=== PATIENT | male | born 1990 | race American Indian/Alaskan Native ===

== ENCOUNTER 2016-08-07 03:08 | Emergency (ER) | payer MEDICAID ==
[2016-08-07 03:50] VITALS: BMI 28.3
[2016-08-07 03:55] VITALS: BP 115/71; PULSE 70; RESP 16; TEMP 97.8; O2SAT 100
--- NOTE | 2016-08-07 04:22 | ED PDOC ---
Arrival/HPI - General Chief Complaint: Eye Problem Time Seen by Provider: 08/07/16 03:38 Historian: Patient - History of Present Illness Narrative History of Present Illness (Text): 08/07/16 04:18 Gatito Interiano is a 26 year old male, with no significant past medical history, who presents to the emergency department complaining of right eye irritation. Patient sates he was rubbing his eye earlier today and began experiencing right eye irritation. Patient notes a foreign body sensation to his right upper eyelid. Patient denies any contact lens use, visual disturbances, headache, dizziness, eye discharge, or any other complaints. Time/Duration: 1-3 hours (2 hours) Symptom Onset: Gradual Symptom Course: Unchanged Activities at Onset: Rest, Light Context: Home Past Medical History - Provider Review Nursing Documentation Reviewed: Yes - Infectious Disease Hx of Infectious Diseases: None - Tetanus Immunization Tetanus Immunization: Unknown - Past Medical History Past Medical History: No Previous - Musculoskeletal/Rheumatological Hx Arthritis: Yes (neck, back) - Gastrointestinal Hx Gastroesophageal Reflux: Yes - Psychiatric Hx Psychophysiologic Disorder: No Hx Substance Use: Yes (once in awhile) - Past Surgical History Past Surgical History: No Previous - Anesthesia Hx Anesthesia: No - Suicidal Assessment Feels Threatened In Home Enviroment: No Family/Social History - Physician Review Nursing Documentation Reviewed: Yes Family/Social History: No Known Family HX Smoking Status: Never Smoked Hx Alcohol Use: Yes Frequency of alcohol use: Socially Hx Substance Use: Yes (once in awhile) Substance used: marijuana Hx Substance Use Treatment: No Allergies/Home Meds Allergies/Adverse Reactions: Allergies No Known Allergies Allergy (Verified 04/20/16 12:41) Home Medications: Home Meds Medication Instructions Recorded Confirmed Omeprazole [Omeprazole] 20 mg PO DAILY 04/20/16 08/07/16 Review of Systems - Physician Review All systems were reviewed & negative as marked: Yes - Review of Systems Constitutional: Normal. absent: Fevers Eyes: Other (+right eye irritation) ENT: Normal Respiratory: Normal Cardiovascular: Normal Gastrointestinal: Normal Genitourinary Male: Normal Musculoskeletal: Normal. absent: Back Pain, Neck Pain Skin: Normal Neurological: Normal. absent: Headache, Dizziness Endocrine: Normal Hemo/Lymphatic: Normal Psychiatric: Normal Physical Exam Vital Signs Reviewed: Yes Vital Signs Temp Pulse Resp BP Pulse Ox 08/07/16 03:54 97.8 F 70 16 115/71 100 Temperature: Afebrile Blood Pressure: Normal Pulse: Regular Respiratory Rate: Normal Appearance: Positive for: Well-Appearing, Non-Toxic, Comfortable Pain Distress: None Mental Status: Positive for: Alert and Oriented X 3 - Systems Exam Head: Present: Atraumatic, Normocephalic Pupils: Present: PERRL. No: Other (No evidence of corneal abrasion, no foreign body noted) Extroacular Muscles: Present: EOMI Conjunctiva: Present: Other (Minimal right-sided conjunctival erythema) Mouth: Present: Moist Mucous Membranes Neurological: Present: GCS=15, CN II-XII Intact, Speech Normal Skin: Present: Warm, Dry, Normal Color. No: Rashes Psychiatric: Present: Alert, Oriented x 3, Normal Insight, Normal Concentration Medical Decision Making ED Course and Treatment: 08/07/16 04:18 Impression: 26 Year old male Complaining of right eye irritation for 2 hours. Plan: -- Tobrex -- Reassess and disposition Progress Notes: Right eyelid was everted, no foreign body visualized. Tetraine HCl and fluorescein dye applied, there was no fluorescein uptake, no evidence of corneal abrasion. Right eye flushed with saline. 08/07/16 04:46 On re-evaluation, the patient feels better and is in no acute distress. I have discussed the results and plan with the patient, who expresses understanding. Patient in agreement with plan to discharged home. Patient is stable for discharge. Patient was instructed to follow up with physician/clinic in 1-2 days or return if symptoms worsen or new concerning symptoms arise. - Medication Orders Current Medication Orders: Discontinued Medications Tobramycin Sulfate (Tobrex 0.3% Ophth Oint) 0 appl OD ONCE ONE Stop: 08/07/16 04:37 Last Admin: 08/07/16 04:49 Dose: 0.5 inch - Scribe Statement The provider has reviewed the documentation as recorded by the Stacy Echevarria Provider Attestation: All medical record entries made by the Jalilibyared were at my direction and personally dictated by me. I have reviewed the chart and agree that the record accurately reflects my personal performance of the history, physical exam, medical decision making, and the department course for this patient. I have also personally directed, reviewed, and agree with the discharge instructions and disposition. Disposition/Present on Arrival - Present on Arrival Any Indicators Present on Arrival: No History of DVT/PE: No History of Uncontrolled Diabetes: No Urinary Catheter: No History of Decub. Ulcer: No History Surgical Site Infection Following: None - Disposition Have Diagnosis and Disposition been Completed?: Yes Diagnosis: Corneal irritation of right eye, Conjunctivitis Disposition: HOME/ ROUTINE Disposition Time: 04:48 Patient Plan: Discharge Condition: GOOD Additional Instructions: Place eye antibiotic ointment to affected eye three times daily/follow up with the eye doctor tommorrow Prescriptions: Tobramycin 0.3% [Tobrex 0.3% Ophth Soln] 2 drop OD TID #1 bottle Referrals: Andrea Cohen [Staff Provider] - Follow up with primary
[2016-08-07] MEDS ORDERED: Tobramycin 0.3% OPH OINT OD ONE (04:36)
== END 2016-08-07 05:17 | disposition home or self-care (01) ==
LOC: ED 03:08
DX: H10.9 Unspecified conjunctivitis (principal); H57.8 Other specified disorders of eye and adnexa

== ENCOUNTER 2016-11-06 00:57 | Emergency (ER) | payer MEDICAID ==
[2016-11-06 00:58] VITALS: BMI 28.3
[2016-11-06 01:10] VITALS: BP 146/81; PULSE 86; RESP 17; TEMP 98; O2SAT 100
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
--- NOTE | 2016-11-06 09:21 | RAD ---
PROCEDURE: Right Wrist Radiographs. HISTORY: pain COMPARISON: None. FINDINGS: BONES: Normal. No fracture. JOINTS: Normal. No dislocation. SOFT TISSUES: Normal. OTHER FINDINGS: None. IMPRESSION: Normal right wrist radiographs.
--- NOTE | 2016-11-06 09:22 | RAD ---
PROCEDURE: Radiographs of the Right Shoulder HISTORY: pain COMPARISON: No prior. FINDINGS: BONES: Normal. No fracture. JOINTS: Normal. Glenohumeral and acromioclavicular joints preserved. No osteoarthritis. SOFT TISSUES: Normal. OTHER FINDINGS: None. IMPRESSION: Normal radiographs of the right shoulder.
== END 2016-11-06 02:23 | disposition home or self-care (01) ==
LOC: ED 00:57
DX: M25.511 Pain in right shoulder (principal); M25.531 Pain in right wrist

== ENCOUNTER 2016-11-17 10:32 | Emergency (ER) | payer MEDICAID ==
[2016-11-17 10:32] VITALS: BMI 28.3
[2016-11-17 10:37] VITALS: TEMP 98.6
--- NOTE | 2016-11-17 11:30 | ED PDOC ---
Arrival/HPI - History of Present Illness Time/Duration: < week Symptom Onset: Gradual Symptom Course: Unchanged Quality: Stabbing Severity Level: 7 Activities at Onset: Rest Context: Sitting <Buddy Baeza - Last Filed: 11/17/16 11:42> <Oh Thomas - Last Filed: 11/17/16 13:16> - General Chief Complaint: Chest Pain Time Seen by Provider: 11/17/16 11:08 - History of Present Illness Narrative History of Present Illness (Text): 11/17/16 11:20 This is a 26 yr old male with a significant past medical history of GERD who comes to the [facility] complaining of chest pain for approximately 3 days. The patient describes the pain as sharp in nature and rates it a 6/10 in severity. He describes the pain as pleuritic in nature and worse with bending forward. He associates the pain with with constipation and gas. The patient took Pantoprozole which normally stops the symptoms but they persisted and he decided to come in to the E.D. . The patient reports stomach pain. The patient denies, nausea, vomiting, lightheadedness, dizziness, shortness of breath, changes in vision, or syncopal episodes. Per patient he has had an U/S done and is scheduled for a scope by the Nursing Education Specialist this month. All studies thus far have come back negative per patient. 11/17/16 11:42 (Buddy Baeza) Past Medical History - Provider Review Nursing Documentation Reviewed: Yes - Infectious Disease Hx of Infectious Diseases: None - Tetanus Immunization Tetanus Immunization: Unknown - Past Medical History Past Medical History: No Previous - Musculoskeletal/Rheumatological Hx Arthritis: Yes (neck, back) - Gastrointestinal Hx Gastroesophageal Reflux: Yes - Psychiatric Hx Psychophysiologic Disorder: No Hx Substance Use: Yes (once in awhile) - Past Surgical History Past Surgical History: No Previous - Anesthesia Hx Anesthesia: No - Suicidal Assessment Feels Threatened In Home Enviroment: No <Buddy Baeza - Last Filed: 11/17/16 11:42> Family/Social History - Physician Review Nursing Documentation Reviewed: Yes Family/Social History: Hypertension Smoking Status: Never Smoked Hx Alcohol Use: Yes Hx Substance Use: Yes (once in awhile) Substance used: marijuana Hx Substance Use Treatment: No <Buddy Baeza - Last Filed: 11/17/16 11:42> Allergies/Home Meds <Jones Baezan - Last Filed: 11/17/16 11:42> <Oh Thomas - Last Filed: 11/17/16 13:16> Allergies/Adverse Reactions: Allergies corn Allergy (Verified 11/17/16 10:35) WHEEZING Home Medications: Home Meds Medication Instructions Recorded Confirmed Pantoprazole [Protonix] 40 mg PO DAILY 11/17/16 11/17/16 Review of Systems - Physician Review All systems were reviewed & negative as marked: Yes - Review of Systems Constitutional: Normal. absent: Weight Change, Fevers Eyes: Normal. absent: Vision Changes, Eye Pain ENT: Normal. absent: Rhinorrhea, Epistaxis, Sinus Congestion Respiratory: Normal. absent: SOB, Sputum, Wheezing Cardiovascular: Normal, Chest Pain. absent: Palpitations, Syncope Gastrointestinal: Normal, Abdominal Pain, Constipation. absent: Nausea, Vomiting, Hematochezia Genitourinary Male: Normal. absent: Dysuria, Hematuria Musculoskeletal: Normal. absent: Back Pain, Joint Swelling Skin: Normal. absent: Rash, Skin Lesions <Jones Baezan - Last Filed: 11/17/16 11:42> Physical Exam Vital Signs Reviewed: Yes Temperature: Afebrile Blood Pressure: Normal Pulse: Regular Respiratory Rate: Normal Appearance: Positive for: Well-Appearing, Non-Toxic, Comfortable Pain Distress: None Mental Status: Positive for: Alert and Oriented X 3 - Systems Exam Head: Present: Atraumatic, Normocephalic Pupils: Present: PERRL Extroacular Muscles: Present: EOMI. No: Gaze Palsy Conjunctiva: Present: Normal. No: Injected Mouth: Present: Moist Mucous Membranes Neck: Present: Normal Range of Motion. No: JVD, Lymphadenopathy Respiratory/Chest: Present: Clear to Auscultation, Good Air Exchange. No: Respiratory Distress, Accessory Muscle Use Cardiovascular: Present: Regular Rate and Rhythm, Normal S1, S2. No: Murmurs, Tachycardic, Bradycardic Abdomen: Present: Tenderness, Normal Bowel Sounds. No: Distention, Peritoneal Signs, Rebound, Guarding Upper Extremity: Present: Normal Inspection. No: Cyanosis, Edema, Swelling Lower Extremity: Present: Normal Inspection. No: Edema, Cyanosis Neurological: Present: CN II-XII Intact, Speech Normal Skin: Present: Dry, Normal Color. No: Warm, Rashes Psychiatric: Present: Alert, Oriented x 3, Normal Insight, Normal Concentration <AryanBuddy - Last Filed: 11/17/16 11:42> Medical Decision Making <Buddy Baeza - Last Filed: 11/17/16 11:42> - RAD Interpretation Coil Winder Strap: ED Physician <Oh Thomas - Last Filed: 11/17/16 13:16> ED Course and Treatment: 11/17/16 11:34 Patient came in with chest pain for 3 days. Labs were ordered for him including : EKG, CXR, Urine drug screen, and d-dimer. Patient will be revaluated once lab work and imaging returns. 11/17/16 11:36 11/17/16 11:37 (Buddy Baeza) A 26 year old male with chest pain. In agreement with resident note, which includes further HPI details. Patient was seen and evaluated with resident, came up with plan and treatment together. 11/17/16 12:44 Seen and examined with the resident. Our history and physical exam reveals a young man with left-sided pleuritic chest pain for the last several days. Worse with deep breathing. No dyspnea. No sputum. No fever or chills. No injury or trauma. Markedly improved with Toradol. He will be discharged home to follow up with PMD for outpatient endoscopy as already scheduled. 11/17/16 13:16 EKG shows normal sinus rhythm rate approximately 75 with nonspecific T-wave changes (Oh Thomas) - Lab Interpretations Lab Results: 11/17/16 11:20 11/17/16 11:20 Lab Results 11/17/16 12:00: Urine Opiates Screen Negative, Urine Methadone Screen Negative, Ur Barbiturates Screen Negative, Ur Phencyclidine Scrn Negative, Ur Amphetamines Screen Negative, U Benzodiazepines Scrn Negative, U Oth Cocaine Metabols Negative, U Cannabinoids Screen Positive H 11/17/16 11:20: Sodium 140, Potassium 4.0, Chloride 106, Carbon Dioxide 23, Anion Gap 15, BUN 14, Creatinine 0.9, Est GFR ( Amer) > 60, Est GFR (Non- Af Amer) > 60, Random Glucose 112 H, Calcium 9.2, Total Bilirubin 0.8, AST 24, ALT 26, Alkaline Phosphatase 92, Lactate Dehydrogenase 403, Total Creatine Kinase 161, Troponin I < 0.01, Total Protein 7.5, Albumin 4.0, Globulin 3.5, Albumin/Globulin Ratio 1.1, Lipase 83 11/17/16 11:20: D-Dimer, Quantitative 0.19 11/17/16 11:20: WBC 5.9, RBC 4.37, Hgb 13.9 L, Hct 39.7 L, MCV 90.8, MCH 31.8, MCHC 35.0, RDW 12.4, Plt Count 236, MPV 9.4, Gran % 60.1, Lymph % (Auto) 31.8, [place] % (Auto) 6.8 H, Eos % (Auto) 1.0 L, Baso % (Auto) 0.3, Gran # 3.55, Lymph # 1.9, [place] # 0.4, Eos # 0.1, Baso # 0.02 - RAD Interpretation Radiology Orders: 11/17/16 11:16 CHEST PORTABLE [RAD] Stat Chest 1 view shows no infiltrate effusion cardiomegaly or pneumothorax (Oh Thomas) - Medication Orders Current Medication Orders: Discontinued Medications Ketorolac Tromethamine (Toradol) 15 mg IVP STAT STA Stop: 11/17/16 11:16 Last Admin: 11/17/16 11:36 Dose: 15 mg <Buddy Baeza - Last Filed: 11/17/16 11:42> - PA / LINK ASSEMBLER / Resident Statement / has reviewed & agrees with the documentation as recorded. / has examined the patient and agrees with the treatment plan. - Scribe Statement The provider has reviewed the documentation as recorded by the Scribe <Oh Thomas - Last Filed: 11/17/16 13:16> - Scribe Statement Gail Yanes Provider Scribe Attestation: All medical record entries made by the Scribe were at my direction and personally dictated by me. I have reviewed the chart and agree that the record accurately reflects my personal performance of the history, physical exam, medical decision making, and the department course for this patient. I have also personally directed, reviewed, and agree with the discharge instructions and disposition. (Oh Thomas) Disposition/Present on Arrival - Present on Arrival History of DVT/PE: No History of Uncontrolled Diabetes: No Urinary Catheter: No History of Decub. Ulcer: No History Surgical Site Infection Following: None <Buddy Baeza - Last Filed: 11/17/16 11:42> - Present on Arrival Any Indicators Present on Arrival: No History of DVT/PE: No History of Uncontrolled Diabetes: No Urinary Catheter: No History of Decub. Ulcer: No - Disposition Have Diagnosis and Disposition been Completed?: Yes Disposition Time: 12:45 Patient Plan: Discharge <Oh Thomas - Last Filed: 11/17/16 13:16> - Disposition Diagnosis: Pleuritic chest pain Disposition: HOME/ ROUTINE Patient Problems: Current Active Problems Problem Status Onset Pleuritic chest pain Acute Condition: IMPROVED Discharge Instructions (ExitCare): Chest Pain (ED), Pleurisy (ED) Prescriptions: Naproxen [Naprosyn] 500 mg PO BID #14 tab Pantoprazole Sodium [Protonix] 40 mg PO DAILY #20 ect Referrals: Hilario Cotton, [Primary Care Provider] - Follow up with primary Forms: [employer] (Guatemalan), WORK NOTE
[2016-11-17 11:39] LABS: BASO # 0.02 K/mm3 (0.0-2.0); BASO % 0.3 % (0.0-3.0); EOS # 0.1 (0.0-0.7); GRAN # 3.55 (1.4-6.5); GRAN % 60.1 % (50.0-68.0); HEMOGLOBIN 13.9 gm/dL (14.0-18.0); LYMPH # 1.9 (1.2-3.4); LYMPH % 31.8 % (22.0-35.0); MEAN CELL VOLUME 90.8 fL (80.0-105.0); MEAN CORPUSCULAR HEMOGLOBIN 31.8 pg (25.0-35.0); MEAN PLATELET VOLUME 9.4 fl (7.0-11.0); MONO # 0.4 (0.1-0.6); MONO % 6.8 % (1.0-6.0); PLATELET COUNT 236 10^3/uL (120.0-450.0); RBC 4.37 10^6/uL (3.5-6.1); RED CELL DISTRIBUTION WIDTH 12.4 % (11.5-14.5); WHITE BLOOD COUNT 5.9 10^3/ul (4.5-11.0)
[2016-11-17 11:52] LABS: ALB/GLOB RATIO 1.1 (1.1-1.8); ALT/SGPT 26 U/L (7-56); AST/SGOT 24 U/L (15-59); BLOOD UREA NITROGEN 14 mg/dL (7-21); CALCIUM 9.2 mg/dL (8.4-10.5); GFR AFRICAN-AMERICAN > 60; GFR NON-AFRICAN AMERICAN > 60; LIPASE 83 U/L (23-300)
[2016-11-17 12:03] LABS: TROPONIN I < 0.01 ng/mL
[2016-11-17 12:25] LABS: BARBITURATES, UR NEGATIVE (NEGATIVE); BENZODIAZEPINES, UR NEGATIVE (NEGATIVE); OPIATES, UR NEGATIVE (NEGATIVE); PHENCYCLIDINE, UR NEGATIVE (NEGATIVE)
--- NOTE | 2016-11-17 12:25 | RAD ---
HISTORY: r/o P.E. COMPARISON: No prior. FINDINGS: LUNGS: No active pulmonary disease. PLEURA: No significant pleural effusion identified, no pneumothorax apparent. CARDIOVASCULAR: Normal. OSSEOUS STRUCTURES: No significant abnormalities. VISUALIZED UPPER ABDOMEN: Normal. OTHER FINDINGS: None. IMPRESSION: No active disease.
[2016-11-17 12:58] VITALS: PULSE 67; RESP 17; O2SAT 97
[2016-11-17 13:02] VITALS: BP 136/84
--- NOTE | 2016-11-19 09:21 | CARD ---
APPROVED REPORT EKG Measurement Heart [id number] <Conclusion> Normal sinus rhythm Nonspecific T wave abnormality LVH by voltage
== END 2016-11-17 13:01 | disposition home or self-care (01) ==
LOC: ED 10:32
DX: R07.81 Pleurodynia (principal)
CPT/HCPCS: 71010; 80053; 80324; 80345; 80346; 80349; 80353; 80358; 80361; 82550; 83615; 83690; 83992; 84484; 85025; 85378; 93005; 96374; 99284; J1885

== ENCOUNTER 2017-04-02 02:01 | Emergency (ER) | payer MEDICAID ==
[2017-04-02 02:01] VITALS: BMI 28.3
[2017-04-02] MEDS ORDERED: Sodium Chloride 0.9% 1,000 ML IV STA (02:30)
--- NOTE | 2017-04-02 02:41 | ED PDOC ---
Arrival/HPI - General Chief Complaint: Abdominal Pain Time Seen by Provider: 04/02/17 02:15 Historian: Patient - History of Present Illness Narrative History of Present Illness (Text): 04/02/17 02:40 A 26 year old male, whose past medical history includes GERD, presents to the emergency department complaining of stomach discomfort, burning sensation to stomach with some reflux symptoms. Reports nausea and diarrhea. Patient states symptoms began after eating yesterday. Patient notes intermittent non- productive cough but denies any fever, chills or any other complaints at this time. Time/Duration: Other (yesterday) Symptom Onset: Sudden Symptom Course: Unchanged Activities at Onset: Rest Context: Home Past Medical History - Provider Review Nursing Documentation Reviewed: Yes - Infectious Disease Hx of Infectious Diseases: None - Tetanus Immunization Tetanus Immunization: Unknown - Past Medical History Past Medical History: No Previous - Musculoskeletal/Rheumatological Hx Arthritis: Yes (neck, back) - Gastrointestinal Hx Gastroesophageal Reflux: Yes - Psychiatric Hx Psychophysiologic Disorder: No Hx Substance Use: Yes (once in awhile) - Past Surgical History Past Surgical History: No Previous - Anesthesia Hx Anesthesia: No - Suicidal Assessment Feels Threatened In Home Enviroment: No Family/Social History - Physician Review Nursing Documentation Reviewed: Yes Family/Social History: No Known Family HX Smoking Status: Current Some Days Smoker Hx Alcohol Use: Yes Hx Substance Use: Yes (once in awhile) Substance used: marijuana Hx Substance Use Treatment: No Allergies/Home Meds Allergies/Adverse Reactions: Allergies corn Allergy (Verified 04/02/17 02:20) WHEEZING Review of Systems - Physician Review All systems were reviewed & negative as marked: Yes - Review of Systems Constitutional: absent: Fevers, Other (chills) Respiratory: Cough (non-productive) Gastrointestinal: Diarrhea, Nausea, Other (stomach discomfort, burning sensation ) Physical Exam Vital Signs Reviewed: Yes Vital Signs Temp Pulse Resp BP Pulse Ox 04/02/17 04:01 98.7 F 64 17 120/75 100 04/02/17 02:18 98.0 F 90 16 135/63 98 04/02/17 02:01 98.6 F 60 16 119/70 100 Temperature: Afebrile Blood Pressure: Normal Pulse: Regular Respiratory Rate: Normal Appearance: Positive for: Well-Appearing, Non-Toxic, Comfortable Pain Distress: None Mental Status: Positive for: Alert and Oriented X 3 - Systems Exam Head: Present: Atraumatic, Normocephalic Pupils: Present: PERRL Extroacular Muscles: Present: EOMI Conjunctiva: Present: Normal Mouth: Present: Moist Mucous Membranes Neck: Present: Normal Range of Motion Respiratory/Chest: Present: Clear to Auscultation, Good Air Exchange. No: Respiratory Distress, Accessory Muscle Use Cardiovascular: Present: Regular Rate and Rhythm, Normal S1, S2. No: Murmurs Abdomen: Present: Normal Bowel Sounds. No: Tenderness, Distention, Peritoneal Signs Back: Present: Normal Inspection Upper Extremity: Present: Normal Inspection. No: Cyanosis, Edema Lower Extremity: Present: Normal Inspection. No: Edema Neurological: Present: GCS=15, CN II-XII Intact, Speech Normal Skin: Present: Warm, Dry, Normal Color. No: Rashes Psychiatric: Present: Alert, Oriented x 3, Normal Insight, Normal Concentration Medical Decision Making ED Course and Treatment: 04/02/17 02:38 Impression: A 26 year old male with stomach discomfort, burning sensation to stomach, nausea and diarrhea. Plan: -- labs -- Pepcid, IV fluids, Toradol, Zofran -- Reassess and disposition Prior Visits: Notes and results from previous visits were reviewed. Patient was last seen in the emergency department on 11/17/16 for evaluation of chest pain. Progress Notes: 04/02/17 05:03 On re-evaluation, patient feels better and is in no acute distress. I have discussed the results and plan with the patient, who expresses understanding. Patient in agreement with plan to be discharged home. Patient is stable for discharge. Patient was instructed to follow up with physician or return if symptoms worsen or new concerning symptoms arise. - Lab Interpretations Lab Results: 04/02/17 02:30 04/02/17 02:30 Lab Results 04/02/17 02:30: WBC 7.6 D, RBC 4.18, Hgb 13.5 L, Hct 38.6 L, MCV 92.3, MCH 32.3 , MCHC 35.0, RDW 12.3, Plt Count 259, MPV 9.8 04/02/17 02:30: Sodium 139, Potassium 4.1, Chloride 106, Carbon Dioxide 26, Anion Gap 11, BUN 12, Creatinine 1.0, Est GFR ( Amer) > 60, Est GFR (Non- Af Amer) > 60, Random Glucose 104, Calcium 9.3, Total Bilirubin 0.3, AST 33, ALT 30, Alkaline Phosphatase 97, Total Protein 7.6, Albumin 4.2, Globulin 3.4, Albumin/Globulin Ratio 1.2, Lipase 143 I have reviewed the lab results: Yes - Medication Orders Current Medication Orders: Discontinued Medications Famotidine (Pepcid) 20 mg IVP STAT STA Stop: 04/02/17 02:33 Last Admin: 04/02/17 02:30 Dose: 20 mg IVP Administration Document 04/02/17 02:30 AB (Rec: 04/02/17 03:17 [id number] Charges for Administration # of IVP Administrations 1 Sodium Chloride (Sodium Chloride 0.9%) 1,000 mls @ 999 mls/hr IV .Q1H1M STA Stop: 04/02/17 03:30 Last Admin: 04/02/17 02:30 Dose: 999 mls/hr eMAR Start Stop Document 04/02/17 02:30 AB (Rec: 04/02/17 03:16 [id number] Intravenous Solution Start Date 04/02/17 Start Time 02:30 End Date 04/02/17 End time 03:30 Total Infusion Time 60 Ketorolac Tromethamine (Toradol) 30 mg IVP ONCE ONE Stop: 04/02/17 02:31 Last Admin: 04/02/17 02:30 Dose: 30 mg MAR Pain Assessment Document 04/02/17 02:30 AB (Rec: 04/02/17 03:17 AB [id number] Pain Reassessment Is this a pain reassessment? Yes Sleep Is patient sleeping during reassessment? No Presence of Pain Presence of Pain Yes Pain Scale Used Pain Scale Used Numeric Location Pain Location Body Site Abdomen Description Description Constant Intensity of Pain at present 3 Pain Behavior Guarding Aggravating Factors ADL's Alleviating Factors/Management Medication Techniques IVP Administration Document 04/02/17 02:30 AB (Rec: 04/02/17 03:17 AB [facility] [id number] Charges for Administration # of IVP Administrations 1 Ondansetron HCl (Zofran Inj) 4 mg IVP ONCE ONE Stop: 04/02/17 02:31 Last Admin: 04/02/17 02:30 Dose: 4 mg IVP Administration Document 04/02/17 02:30 AB (Rec: 04/02/17 03:17 AB [facility] [id number] Charges for Administration # of IVP Administrations 1 - Scribe Statement The provider has reviewed the documentation as recorded by the Scribe Seth Hoff Provider Scribe Attestation: All medical record entries made by the Scribe were at my direction and personally dictated by me. I have reviewed the chart and agree that the record accurately reflects my personal performance of the history, physical exam, medical decision making, and the department course for this patient. I have also personally directed, reviewed, and agree with the discharge instructions and disposition. Disposition/Present on Arrival - Present on Arrival Any Indicators Present on Arrival: No History of DVT/PE: No History of Uncontrolled Diabetes: No Urinary Catheter: No History of Decub. Ulcer: No History Surgical Site Infection Following: None - Disposition Have Diagnosis and Disposition been Completed?: Yes Diagnosis: Gastritis, Bronchitis Disposition: HOME/ ROUTINE Disposition Time: 05:03 Patient Plan: Discharge Patient Problems: Current Active Problems Problem Status Onset Bronchitis Acute Gastritis Acute Condition: STABLE Discharge Instructions (ExitCare): Gastritis (ED), Acute Bronchitis (ED) Additional Instructions: Take meds as prescribed/follow up with your doctor this week Prescriptions: Pantoprazole Sodium [Protonix] 40 mg PO DAILY #21 ect Benzonatate [Tessalon Perles] 100 mg PO TID PRN #21 sgl PRN Reason: Cough Azithromycin [Zithromax] 250 mg PO DAILY #4 tab Forms: [employer] (Kiswahili)
[2017-04-02 03:06] LABS: ALB/GLOB RATIO 1.2 (1.1-1.8); ALKALINE PHOSPHATASE 97 U/L (38-126); ALT/SGPT 30 U/L (7-56); AST/SGOT 33 U/L (17-59); BILIRUBIN,TOTAL 0.3 mg/dL (0.2-1.3); BLOOD UREA NITROGEN 12 mg/dL (7-21); CALCIUM 9.3 mg/dL (8.4-10.5); CARBON DIOXIDE 26 mmol/L (21-33); CHLORIDE 106 mmol/L (98-107); GFR AFRICAN-AMERICAN > 60; GLUCOSE,RANDOM 104 mg/dL (70-110); LIPASE 143 U/L (23-300); POTASSIUM 4.1 mmol/L (3.6-5.0); SODIUM 139 mmol/L (132-148); TOTAL PROTEIN 7.6 g/dL (5.8-8.3)
[2017-04-02 03:20] LABS: HEMATOCRIT 38.6 % (42.0-52.0); MEAN CELL VOLUME 92.3 fl (80.0-105.0); MEAN CORPUSCULAR HEMOGLOBIN 32.3 pg (25.0-35.0); MEAN PLATELET VOLUME 9.8 fl (7.0-11.0); RED CELL DISTRIBUTION WIDTH 12.3 % (11.5-14.5); WHITE BLOOD COUNT 7.6 10^3/ul (4.5-11.0)
[2017-04-02 04:39] VITALS: O2SAT 100
[2017-04-02 05:36] VITALS: BP 132/86; PULSE 80; RESP 16; TEMP 98.6
== END 2017-04-02 05:35 | disposition home or self-care (01) ==
LOC: ED 02:01
DX: K29.70 Gastritis, unspecified, without bleeding (principal); J20.9 Acute bronchitis, unspecified; F17.210 Nicotine dependence, cigarettes, uncomplicated
CPT/HCPCS: 80053; 83690; 85027; 96361; 96374; 96375; 99283; J1885; J2405; J7040